=== PATIENT | male | born 1995 | race Caucasian/White ===

== ENCOUNTER 2022-02-15 10:51 | Emergency (ER) | payer SELFPAY ==
[~2022-02-15 10:51] MED LIST: IBUPROFEN600 MG PO
[2022-02-15] MEDS ORDERED: CEPHALEXIN500 M1 PO (11:43)
[2022-02-15] MEDS ORDERED: IBUPROFEN600 MG PO (11:43)
[2022-02-15] MEDS ORDERED: BACTROBAN OINT22 GM EXT (11:43)
== END 2022-02-15 12:20 | disposition home or self-care (01) ==
LOC: ER1 10:51
DX: T22.212A Burn of second degree of left forearm, initial encounter (principal); F12.20 Cannabis dependence, uncomplicated; X17.XXXA Contact with hot engines, machinery and tools, initial encounter; Y92.009 Unspecified place in unspecified non-institutional (private) residence as the place of occurrence of the external cause
CPT/HCPCS: 90471; 90715; 99283

== ENCOUNTER 2022-02-24 11:11 | Emergency (ER) | payer SELFPAY ==
[~2022-02-24 11:11] MED LIST changes: +BACTROBAN OINT22 GM EXT; +CEPHALEXIN500 M1 PO
== END 2022-02-24 13:20 | disposition home or self-care (01) ==
LOC: ER1 11:11
DX: T22.00XA Burn of unspecified degree of shoulder and upper limb, except wrist and hand, unspecified site, initial encounter (principal); X08.8XXA Exposure to other specified smoke, fire and flames, initial encounter
CPT/HCPCS: 99283